=== PATIENT | female | born 1980 | race Hispanic/Latino ===

== ENCOUNTER → 2025-02-27 | Outpatient (CLI) | payer OTHER ==
[2025-02-27 11:08] LABS: ALBUMIN 4.6 g/dL (3.5-5.0); BILIRUBIN,TOTAL 0.4 mg/dL (0.2-1.0); CREATININE 1.1 mg/dL (0.5-1.0); POTASSIUM 3.9 mmol/L (3.5-5.1); TOTAL PROTEIN, SERUM 8.3 g/dL (6.0-8.3)
[2025-02-27 11:15] LABS: APPEARANCE,URINE CLEAR (CLEAR); BILIRUBIN,URINE NEGATIVE (NEGATIVE); COLOR,URINE COLORLESS (YELLOW); GLUCOSE, URINE (UA) NEGATIVE (NEGATIVE); KETONES,URINE NEGATIVE (NEGATIVE); LEUKOCYTE ESTERASE ,URINE NEGATIVE Leu/uL (NEGATIVE); NITRATE,URINE NEGATIVE (NEGATIVE); OCCULT BLOOD,URINE NEGATIVE (NEGATIVE); PROTEIN,URINE NEGATIVE (NEGATIVE); UROBILINOGEN,URINE 0.2 mg/dL (0.2-1.0)
[2025-02-27 11:16] LABS: ADD UA MICROSCOPIC NO
--- NOTE | 2025-02-27 11:16 | HMCSR ---
APPROVED REPORT EXAM: Two-dimensional and M-mode echocardiogram with Doppler and color Doppler. INDICATION ICD: Old myocardial infarction I25.2 2D Dimensions RVDd4.7 cmLVEF(%)72.3 (>50%)LVED Vol(simp.)97.3 mL IVSd0.8 (0.7-1.1cm)FS(%)41 %LVES Vol(simp.)32.1 mL LVDd4.3 (3.8-5.6cm)LA (2D)4.0 (1.6-4.0cm)LVEF(%, simp.)67 % PWd1.1 (0.7-1.1cm)Ao Root(2D)3.1 (2.0-3.7cm)LA ESV INDEX (BP)27.95 mL/m2 LVDs2.5 (2.5-4.0cm)LVOT diam2.2 (1.8-2.4cm) IVC diam1.5 cm M-Mode Dimensions EPSS0.3 cm LA (MM)4.2 (1.6-4.0cm) Ao Root(MM)2.9 (2.0-3.7cm) Aortic Valve AoV Vmax1.3 m/Ana Laura Peak GR6.9 mmHgLVOT Vmax1.0 m/s AoV VTI0.3 mAo Mean GR3.3 mmHgLVOT VTI0.19 m GISEL (VMAX)2.8 cm2AVA (VTI) 2.8 cm2 Mitral Valve MV E Vmax88.5 cm/sDECEL Exxr678 ms MV A Vmax79.2 cm/sP 1/2 T41 ms E/A ratio1.1MVA (PHT)5.4 cm2 TDI E/E' Kjbmez75.6 Medial E' Peak V7.00 cm/s Pulmonary Valve PV Vmax1.1 m/s Tricuspid Valve TR Vmax1.4 m/sRVSP8.0 mmHg TR Peak GR8.0 mmHg Left Ventricle The left ventricle is normal size. There is normal LV segmental wall motion. There is normal left josh tricular wall thickness. LVEF is 65-70%. The left ventricular diastolic function is normal. Right Ventricle The right ventricle is mildly dilated. The right ventricular systolic function is normal. Atria The left atrium size is normal. The right atrium size is normal. Aortic Valve The aortic valve is normal in structure. No aortic regurgitation is present. There is no aortic valvu lar stenosis. Mitral Valve The mitral valve is normal in structure. There is no evidence of significant mitral regurgitation. Th ere is no mitral valve stenosis. Tricuspid Valve The tricuspid valve is normal in structure. There is trace tricuspid valve regurgitation noted. Pulmonic Valve The pulmonary valve is normal in structure. There is no pulmonic valvular regurgitation. Great Vessels The aortic root is normal in size. The IVC is normal in size and collapses >50% with inspiration. Pericardium There is no pericardial effusion. Conclusion LVEF is 65-70%. There is normal LV segmental wall motion. The left ventricular diastolic function is normal. The right ventricle is mildly dilated. The aortic root is normal in size. There is no pericardial effusion.
== END | disposition home or self-care (01) ==
LOC: RAH 10:19
PROVIDERS: ATTEND Chiropractor
DX: I51.7 Cardiomegaly (principal); I25.2 Old myocardial infarction; E11.9 Type 2 diabetes mellitus without complications
CPT/HCPCS: 36415; 80053; 81003; 93306